=== PATIENT | male | born 1995 | race Caucasian/White ===

== ENCOUNTER 2017-03-26 17:39 | Emergency (ER) | payer OTHER ==
[2017-03-26 17:42] VITALS: BP 130/60; PULSE 94; TEMP 98.1; BMI 22.9
--- NOTE | 2017-03-26 17:53 | PDOC ---
History of Present Illness - General Chief Complaint: RX Refill Stated Complaint: RX REFILLS Time Seen by Provider: 03/26/17 17:45 History Source: Patient Exam Limitations: No Limitations - History of Present Illness Initial Comments: 03/26/17 18:00 came to emergency department requesting psychiatric medication refills. has not taken approximately 5 days as he has been too depressed to attend clinic at [facility]. [facility] psychiatric clinic is aware that he was without his medications but he is required to go to clinic to receive the prescription refills and he has not done so. Denies homicidal or suicidal ideation, denies feelings of wanting to hurt himself or others, just has been on a depressive side of his manic depressive disorder and sleeping most of the time. Recounts 5 different medications and dosages which were verified by [facility] pharmacy on [facility] to have been refilled ; [place] [facility] 450 mg x2 daily, 60 tablets were filled on January 23 Risperdal 4 mg, 30 tablets filled on January 30 Trazodone 50 mg 30 tablets filled on January 23 Cogentin 1 mg 60 tablets filled on January 24 Lamictal 100 mg 30 tablets filled on January 23 Patient is currently asymptomatic, denies any tremulousness, palpitations chest pain dizziness nausea vomiting diarrhea or constipation. Has never had seizure disorder. And reports being clean from any kind of illicit drug use for 8 months in 14 days. Timing/Duration: unsure Severity: mild, moderate Past History - Travel Traveled outside of the country in the last 30 days: No Close contact w/someone who was outside of country & ill: No - Past Medical History Allergies/Adverse Reactions: Allergies Allergy/AdvReac Type Severity Reaction Status Date / Time No Known Allergies Allergy Verified 03/26/17 17:42 Home Medications: Ambulatory Orders Benztropine Mesylate [Cogentin -] 1 mg PO DAILY 03/26/17 Lamotrigine [Lamictal] 100 mg PO ASDIR 03/26/17 [place] Carbonate [Eskalith -] 600 mg PO ASDIR 03/26/17 Trazodone HCl 50 mg PO ASDIR 03/26/17 Anemia: No Asthma: No Cancer: No Cardiac Disorders: Yes (tx for pericaditis in 2010, viral) CVA: No COPD: No CHF: No Dementia: No Diabetes: No GI Disorders: No Disorders: No HTN: No Hypercholesterolemia: No Kidney Stones: No Liver Disease: No Psychiatric Problems: Yes (Depression, Bipolar) Seizures: No Thyroid Disease: No - Surgical History Abdominal Surgery: No Appendectomy: No Cardiac Surgery: Yes (pericarditis age 17) Cholecystectomy: No Lung Surgery: Yes (Bilateral spontaneous pneumothorax age 13) Neurologic Surgery: No Orthopedic Surgery: No - Reproductive History Testicular Surgery: No - Suicide/Smoking/Psychosocial Hx Smoking History: Current every day smoker Have you smoked in the past 12 months: Yes Number of Cigarettes Smoked Daily: 10 Information on smoking cessation initiated: Yes 'Breaking Loose' booklet given: 03/26/17 Hx Alcohol Use: No Drug/Substance Use Hx: No Substance Use Type: None Hx Substance Use Treatment: Yes Review of Systems - Review of Systems Able to Perform ROS?: Yes Is the patient limited Yakut proficient: Yes Constitutional: Yes: Symptoms Reported, See HPI, Loss of Appetite, Malaise HEENTM: Yes: See HPI. No: Symptoms Reported Respiratory: No: Symptoms reported Cardiac (ROS): No: Symptoms Reported Psychiatric: Yes: Depression, Mood Swings *Physical Exam - Vital Signs Last Vital Signs Temp Pulse Resp BP Pulse Ox 98.1 F 94 H 18 130/60 100 03/26/17 17:40 03/26/17 17:40 03/26/17 17:40 03/26/17 17:40 03/26/17 17:40 - Physical Exam General Appearance: Yes: Nourished, Appropriately Dressed. No: Apparent Distress HEENT: positive: SARAH, Normal ENT Inspection, TMs Normal, Pharynx Normal Neck: positive: Supple. negative: Tender Respiratory/Chest: positive: Lungs Clear, Normal Breath Sounds Musculoskeletal: positive: Normal Inspection Extremity: positive: Normal Capillary Refill, Normal Inspection, Normal Range of Motion Neurologic: positive: associate medical director II-XII NML intact, Fully Oriented, Alert, Normal Mood/ Affect, Normal Response, Motor Strength 5/5, EOM Palsy (able to recount all events, appears calm, cooperative with exam and ensuring will follow-up tomorrow with his psychiatric clinic) Medical Decision Making - Medical Decision Making 03/26/17 18:42 Discussed case with Regina Fitzpatrick NP who was on-call for psychiatry today. Reviewed all medications where she has agreed or appropriate dosage and no ill effects would calming even though has not taken for what appears to be one month. We'll give today's dosing now and encouraged patient to follow up tomorrow with psychiatric facility or his clinic. Patient understands no medication prescriptions will be written from here [facility] *DC/Admit/Observation/Transfer Diagnosis at time of Disposition: Medication administered - Discharge Dispostion Disposition: HOME Condition at time of disposition: Stable Admit: No - Patient Instructions Additional Instructions: You have received 900 mg of lithium, 4 mg of Risperdal, 50 mg of trazodone, 1 mg of Cogentin, 100 mg of Lamictal today in the emergency department You need to seek attention at [facility] Monday, March 27 for reevaluation and prescription of monthly medications. Seek attention at psychiatric emergency department if unable to obtain clinic appointment for further evaluation and possible prescription. - Post Discharge Activity Forms/Work/School Notes: Back to Work
[2017-03-26] MEDS ORDERED: risperiDONE 2 MG TABLET PO ONE (18:18)
[2017-03-26] MEDS ORDERED: traZODone HCL 50 MG TABLET (FP) PO ONE (18:19)
[2017-03-26] MEDS ORDERED: BENZTROPINE MESYLATE 1 MG TABLET (FP) PO ONE (18:19)
[2017-03-26] MEDS ORDERED: lamoTRIgine 100 MG TABLET (FP) PO ONE (18:20)
[2017-03-26] MEDS ORDERED: LITHIUM CARBONATE 450 MG TABLET.ER PO ONE (19:00)
[2017-03-27] MEDS ORDERED: LITHIUM CARBONATE 450 MG TABLET.ER PO ONE (18:17)
== END 2017-03-26 18:59 | disposition home or self-care (01) ==
LOC: JERFT 17:39
DX: Z76.0 Encounter for issue of repeat prescription (principal); F31.9 Bipolar disorder, unspecified; F17.210 Nicotine dependence, cigarettes, uncomplicated
CPT/HCPCS: 99281-25

== ENCOUNTER 2019-08-07 16:10 | Emergency (ER) | payer BC, OTHER ==
[2019-08-07 17:45] VITALS: BMI 22.4
[2019-08-07 18:36] LABS: BASO % 0.6 % (0-2.0); EOS % 2.5 % (0-4.5); HEMATOCRIT 37.9 % (35.4-49); LYMPH % 40.1 % (8-40); MCHC 34.3 g/dl (32.0-35.9); MEAN CELL VOLUME 84.7 fl (80-96); MONO % 7.1 % (3.8-10.2); NEUT % 49.7 % (42.8-82.8); PLATELET COUNT 186 K/MM3 (134-434); RBC 4.48 M/mm3 (4.00-5.60); RDW 13.7 % (11.9-15.9); WHITE BLOOD COUNT 4.3 K/mm3 (4.0-10.0)
[2019-08-07 18:49] LABS: INR 1.07 (0.83-1.09); PROTHROMBIN TIME (PATIENT) 12.6 SEC (9.7-13.0)
[2019-08-07 18:52] LABS: ACTIVATED PTT 35.4 SECONDS (25.2-36.5)
[2019-08-07 19:04] LABS: ALBUMIN 3.9 g/dl (3.4-5.0); BILIRUBIN,TOTAL 0.2 mg/dL (0.2-1); BLOOD UREA NITROGEN 20.6 mg/dL (7-18); CALCIUM 9.5 mg/dL (8.5-10.1); CREATININE 0.9 mg/dL (0.55-1.3); POTASSIUM 4.6 mmol/L (3.5-5.1); TOT PROT 7.2 g/dl (6.4-8.2)
--- NOTE | 2019-08-07 19:14 | PDOC ---
History of Present Illness - General Chief Complaint: Suicidal Stated Complaint: Psychiatric Time Seen by Provider: 08/07/19 18:59 History Source: Patient Exam Limitations: No Limitations - History of Present Illness Initial Comments: 23 year old male with PMH bipolar disorder with psychotic features, former heroine user, 1 suicidal attempt in the past BIBA to ED from home for suicidal ideation. Pt reported he has been having a verbal altercations with an ex- girlfriend in [place], she unblocked him so he was able to contact her and she reported to him that her therapist advised her to cut contact with him. He reported he told her "Would your psychiatrist care if I slit my wrists". She called the police who brought him to the ED. He reported "I dont want to live but I dont have the balls to kill myself". Pt reported he took a Suboxone in the last couple of days because he was very stressed and felt he may use. He reported he has been sleeping less lately, which will bring about his auditory hallucinations. He reported he will hear random voices tell him negative things like "you shouldnt talk to her anymore" or "you should hurt yourself". Meds Gabapentin Depakote Seroquel ROS General: denied fever, chills, generalized weakness. HEENT: denied sore throat, rhinorrhea, ear pain. Cardiovascular: denied chest pain, palpitations, syncope, diaphoresis. Respiratory: denied shortness of breath, cough, sputum production, hemoptysis. Gastrointestinal: denied abdominal pain, nausea, vomiting, diarrhea, constipation, blood in stool. Genitourinary: denied dysuria, increased urinary frequency, hematuria, urinary incontinence, flank pain. Back: denied back pain. Musculoskeletal: denied joint pain, muscle pain, joint swelling. Neurological: denied headache, dizziness, numbness, tingling, weakness. Integumentary: denied rash, laceration, abrasion. Hematologic/Lymphatic: denied bruising or bleeding. Psych: admitted to suicidal ideation, auditory hallucinations. denied homicidal ideation, visual hallucinations. PE Constitutional: Well-nourished, Well-developed, appearing stated age. HEENT: head is normocephalic, atraumatic. EOMI. PERRLA. no posterior pharyngeal erythema. no tonsillar swelling or exudates bilaterally. uvula midline. no peritonsillar swelling. no jaw tenderness or misalignment. Neck: supple. Full ROM. Cardiovascular: regular heart rhythm. Normal S1 and S2. no murmurs. no pericardial friction rub. Respiratory: clear to auscultation bilaterally. no crackles, rhonchi or wheezing. no stridor. Gastrointestinal: soft, flat, nontender. normal bowel sounds. no rebound, guarding, or masses. Extremities: peripheral pulses intact and equal. no lower extremity edema noted. Neurological: CN 2-12 grossly intact. moves all four extremities. Psych: awake, alert, oriented x3. follows commands. answers questions appropriately. Past History - Past Medical History Allergies/Adverse Reactions: Allergies Allergy/AdvReac Type Severity Reaction Status Date / Time No Known Allergies Allergy Verified 08/07/19 17:45 Home Medications: Ambulatory Orders Divalproex [Depakote -] 1,000 mg PO DAILY 08/08/19 Gabapentin 800 mg PO HS 08/08/19 Quetiapine Fumarate [Seroquel -] 50 mg PO HS 08/08/19 - Psycho Social/Smoking Cessation Hx Number of Cigarettes Smoked Daily: 10 'Breaking Loose' booklet given: 03/26/17 *Physical Exam - Vital Signs Last Vital Signs Temp Pulse Resp BP Pulse Ox 98.0 F 76 17 110/61 98 08/07/19 16:10 08/07/19 16:10 08/07/19 16:10 08/07/19 16:10 08/07/19 16:10 ED Treatment Course - LABORATORY CBC & Chemistry Diagram: 08/07/19 18:07 08/07/19 18:07 - ADDITIONAL ORDERS Additional order review: Laboratory Results 08/07/19 08/07/19 08/07/19 18:07 18:07 18:07 PT with INR 12.60 INR 1.07 PTT (Actin FS) 35.4 Sodium 140 Potassium 4.6 Chloride 107 Carbon Dioxide 28 Anion Gap 5 L BUN 20.6 H Creatinine 0.9 Est GFR (CKD-EPI)AfAm 138.06 Est GFR (CKD-EPI)NonAf 119.12 Random Glucose 85 Calcium 9.5 Total Bilirubin 0.2 AST 21 ALT 47 Alkaline Phosphatase 62 Total Protein 7.2 Albumin 3.9 Alcohol, Quantitative < 3 08/07/19 18:07 RBC 4.48 MCV 84.7 MCHC 34.3 RDW 13.7 MPV 10.0 Neutrophils % 49.7 Lymphocytes % 40.1 H Monocytes % 7.1 Eosinophils % 2.5 Basophils % 0.6 - RADIOLOGY Radiology Studies Ordered: Category Date Time Status CHEST X-RAY PORTABLE* [RAD] Stat Radiology 08/07/19 17:32 Completed Medical Decision Making - Medical Decision Making 23 year old male with above PMH BIBA to ED for suicidal ideation. Initial Vital Signs Temp Pulse Resp BP Pulse Ox 98.0 F 76 17 110/61 98 08/07/19 16:10 08/07/19 16:10 08/07/19 16:10 08/07/19 16:10 08/07/19 16:10 Afebrile. No tachycardia. No tachypnea. No hypotension. No hypoxia on room air. CXR report: Name: [facility] DEPARTMENT OF RADIOLOGY Phys: Tina Santos RESIDENT : [id number] Age: 23 Sex: M [facility] Acct: [id number] Loc: [address] Exam Date: 08/07/19 Status: [place] [id number] Unit Number: [id number] EXAM#: TYPE/EXAM: RESULT: [id number] RAD/CHEST X-RAY PORTABLE* Chest: Suicidal. Pain. There are no prior studies for comparison. There are clear lungs, normal mediastinum and sharp angles. Is intact. Impression: No acute chest pathology. No comparison studies Reported By: Emiliano Nevarez MD 08/07/19 1811 EKG performed at 1831: rate 76, regular rhythm, normal axis, normal intervals, no acute ST changes. 1:1 placed. Constant observation ordered. No psych fermentation scientist for [facility]. Will call [facility] to transfer. 08/07/19 22:21 Laboratory Last Values WBC 4.3 K/mm3 (4.0-10.0) 08/07/19 18:07 RBC 4.48 M/mm3 (4.00-5.60) 08/07/19 18:07 Hgb 13.0 GM/dL (11.7-16.9) 08/07/19 18:07 Hct 37.9 % (35.4-49) 08/07/19 18:07 MCV 84.7 fl (80-96) 08/07/19 18:07 MCH 29.0 pg (25.7-33.7) 08/07/19 18:07 MCHC 34.3 g/dl (32.0-35.9) 08/07/19 18:07 RDW 13.7 % (11.9-15.9) 08/07/19 18:07 Plt Count 186 K/MM3 (134-434) D 08/07/19 18:07 MPV 10.0 fl (7.5-11.1) 08/07/19 18:07 Absolute Neuts (auto) 2.1 K/mm3 (1.5-8.0) 08/07/19 18:07 Neutrophils % 49.7 % (42.8-82.8) 08/07/19 18:07 Lymphocytes % 40.1 % (8-40) H 08/07/19 18:07 Monocytes % 7.1 % (3.8-10.2) 08/07/19 18:07 Eosinophils % 2.5 % (0-4.5) 08/07/19 18:07 Basophils % 0.6 % (0-2.0) 08/07/19 18:07 Nucleated RBC % 0 % (0-0) 08/07/19 18:07 PT with INR 12.60 SEC (9.7-13.0) 08/07/19 18:07 INR 1.07 (0.83-1.09) 08/07/19 18:07 PTT (Actin FS) 35.4 SECONDS (25.2-36.5) 08/07/19 18:07 Sodium 140 mmol/L (136-145) 08/07/19 18:07 Potassium 4.6 mmol/L (3.5-5.1) 08/07/19 18:07 Chloride 107 mmol/L (98-107) 08/07/19 18:07 Carbon Dioxide 28 mmol/L (21-32) 08/07/19 18:07 Anion Gap 5 MMOL/L (8-16) L 08/07/19 18:07 BUN 20.6 mg/dL (7-18) H 08/07/19 18:07 Creatinine 0.9 mg/dL (0.55-1.3) 08/07/19 18:07 Est GFR (CKD-EPI)AfAm 138.06 08/07/19 18:07 Est GFR (CKD-EPI)NonAf 119.12 08/07/19 18:07 Random Glucose 85 mg/dL (74-106) 08/07/19 18:07 Calcium 9.5 mg/dL (8.5-10.1) 08/07/19 18:07 Total Bilirubin 0.2 mg/dL (0.2-1) 08/07/19 18:07 AST 21 U/L (15-37) 08/07/19 18:07 ALT 47 U/L (13-61) 08/07/19 18:07 Alkaline Phosphatase 62 U/L (45-117) 08/07/19 18:07 Total Protein 7.2 g/dl (6.4-8.2) 08/07/19 18:07 Albumin 3.9 g/dl (3.4-5.0) 08/07/19 18:07 Urine Color Yellow 08/07/19 18:45 Urine Appearance Clear 08/07/19 18:45 Urine pH 7.0 (5.0-8.0) 08/07/19 18:45 Ur Specific [place] 1.019 (1.010-1.035) 08/07/19 18:45 Urine Protein Negative (NEGATIVE) 08/07/19 18:45 Urine Glucose (UA) Negative (NEGATIVE) 08/07/19 18:45 Urine Ketones Negative (NEGATIVE) 08/07/19 18:45 Urine Blood Negative (NEGATIVE) 08/07/19 18:45 Urine Nitrite Negative (NEGATIVE) 08/07/19 18:45 Urine Bilirubin Negative (NEGATIVE) 08/07/19 18:45 Urine Urobilinogen 0.2 mg/dL (0.2-1.0) 08/07/19 18:45 Ur Leukocyte Esterase Negative (NEGATIVE) 08/07/19 18:45 Salicylates < 1.7 mg/dL (2.8-20) L 08/07/19 18:07 Opiates Screen Negative ng/ml (QAJLRU=468) 08/07/19 18:45 Methadone Screen Negative ng/ml (MAUBNV=856) 08/07/19 18:45 Acetaminophen --noresult-- 08/07/19 18:07 Barbiturate Screen Negative ng/ml (BFBEBI=643) 08/07/19 18:45 Phencyclidine Screen Negative ng/ml (CUTOFF=25) 08/07/19 18:45 Ur Amphetamines Screen Negative ng/ml (FGBKIQ=047) 08/07/19 18:45 MDMA (Ecstasy) Screen Negative ng/ml (VCFTMU=027) 08/07/19 18:45 Benzodiazepines Screen Negative ng/ml (ZHBCRZ=582) 08/07/19 18:45 Cocaine Screen Negative ng/ml (RJOYRL=952) 08/07/19 18:45 U Marijuana (THC) Screen Negative ng/ml (CUTOFF=50) 08/07/19 18:45 Alcohol, Quantitative < 3 mg/dL (0.0-5.0) 08/07/19 18:07 Pt signed consent for transfer to tertiary care center for psych evaluation. Required paperwork sent via fax to [phone] to [facility]. Have not spoken with psych or any ED physician at this point. [facility] stated it can be up to 2 hours for response. Pt signed out to Dr. Kwan, EM Resident. Pt is medically cleared for psych evaluation. Discharge - Discharge Information Problems reviewed: Yes Clinical Impression/Diagnosis: Depression with suicidal ideation Condition: Guarded Disposition: TRANSFER ACUTE CARE/OTHER HOSP - Follow up/Referral - Patient Discharge Instructions - Post Discharge Activity Work/Back to School Note: My Personal Safety Plan
[2019-08-07 19:30] LABS: URINE APPEARANCE CLEAR; URINE BILIRUBIN NEGATIVE (NEGATIVE); URINE COLOR YELLOW; URINE GLUCOSE (UA) NEGATIVE (NEGATIVE); URINE KETONE NEGATIVE (NEGATIVE); URINE LEUK ESTERASE NEGATIVE (NEGATIVE); URINE NITRITE NEGATIVE (NEGATIVE); URINE PROTEIN NEGATIVE (NEGATIVE); URINE UROBILINOGEN 0.2 mg/dL (0.2-1.0)
--- NOTE | 2019-08-07 19:57 | PDOC ---
Documentation entered by Shan Jeffers SCRIBE, acting as scribe for Yuri Galo MD. Yuri Galo MD: This documentation has been prepared by the Zeyad victoria Xhesika, SCRIBE, under my direction and personally reviewed by me in its entirety. I confirm that the documentation accurately reflects all work, treatment, procedures, and medical decision making performed by me. Attending Attestation - Resident Resident Name: Tina Santos - ED Attending Attestation I have performed the following: I have examined & evaluated the patient, The case was reviewed & discussed with the resident, I agree w/resident's findings & plan, Exceptions are as noted - HPI HPI: 08/07/19 19:26 The patient is a 23 year old male with a significant PMH of bipolar disorder, past suicidal attempt and heroine abuse who presents to the emergency department BIBA for suicidal ideation. Pt states he does not want to live and is hearing voices intermittently. Allergies: NKDA - Physicial Exam PE: 08/07/19 19:54 Patient is awake and alert, nontoxic-appearing, flat affect, hemodynamically stable Normocephalic and atraumatic PERRLA, EOMI, no nystagmus CTA RRR Abdomen soft, nontender, No focal neuro deficits - Medical Decision Making 08/07/19 19:56 Patient is a 23-year-old male with history of bipolar disorder and polysubstance abuse who presents with suicidal ideations but no definitive plan. Patient will require psychiatric evaluation. There is no psychiatric consult available at this time. Patient will have to be transferred to another facility. Will medically clear.
[2019-08-07 20:29] LABS: COCAINE, UR NEGATIVE ng/ml (CUTOFF=300); METHADONE, UR NEGATIVE ng/ml (CUTOFF=300); OPIATES, URI NEGATIVE ng/ml (CUTOFF=300); PHENCYCLIDINE,URINE NEGATIVE ng/ml (CUTOFF=25); URINE AMPHETAMINES NEGATIVE ng/ml (CUTOFF=500); URINE BARBITURATES NEGATIVE ng/ml (CUTOFF=200); URINE BENZODIAZEPINES NEGATIVE ng/ml (CUTOFF=200)
[2019-08-08] MEDS ORDERED: DIVALPROEX SODIUM 500 MG TABLET E.C. PO ONE (00:25)
[2019-08-08] MEDS ORDERED: GABAPENTIN 400 MG CAPSULE PO ONE (00:25)
[2019-08-08] MEDS ORDERED: QUEtiapine FUMARATE 50 MG TABLET PO ONE (00:25)
[2019-08-08] MEDS ORDERED: GABAPENTIN 100 MG CAPSULE ONE (00:53)
[2019-08-08] MEDS ORDERED: QUEtiapine FUMARATE 25 MG TABLET ONE (00:53)
[2019-08-08] MEDS ORDERED: DIVALPROEX SODIUM 500 MG TABLET E.C. ONE (00:53)
--- NOTE | 2019-08-08 06:19 | PDOC ---
*Physical Exam - Vital Signs Last Vital Signs Temp Pulse Resp BP Pulse Ox 98.0 F 76 17 110/61 98 08/07/19 16:10 08/07/19 16:10 08/07/19 16:10 08/07/19 16:10 08/07/19 16:10 ED Treatment Course - LABORATORY CBC & Chemistry Diagram: 08/07/19 18:07 08/07/19 18:07 - ADDITIONAL ORDERS Additional order review: Laboratory Results 08/07/19 08/07/19 08/07/19 18:45 18:45 18:07 PT with INR INR PTT (Actin FS) Sodium 140 Potassium 4.6 Chloride 107 Carbon Dioxide 28 Anion Gap 5 L BUN 20.6 H Creatinine 0.9 Est GFR (CKD-EPI)AfAm 138.06 Est GFR (CKD-EPI)NonAf 119.12 Random Glucose 85 Calcium 9.5 Total Bilirubin 0.2 AST 21 ALT 47 Alkaline Phosphatase 62 Total Protein 7.2 Albumin 3.9 Urine Color Yellow Urine Appearance Clear Urine pH 7.0 Ur Specific [place] 1.019 Urine Protein Negative Urine Glucose (UA) Negative Urine Ketones Negative Urine Blood Negative Urine Nitrite Negative Urine Bilirubin Negative Urine Urobilinogen 0.2 Ur Leukocyte Esterase Negative Salicylates Opiates Screen Negative Methadone Screen Negative Acetaminophen Barbiturate Screen Negative Phencyclidine Screen Negative Ur Amphetamines Screen Negative MDMA (Ecstasy) Screen Negative Benzodiazepines Screen Negative Cocaine Screen Negative U Marijuana (THC) Screen Negative Alcohol, Quantitative 08/07/19 08/07/19 08/07/19 18:07 18:07 18:07 PT with INR 12.60 INR 1.07 PTT (Actin FS) 35.4 Sodium Potassium Chloride Carbon Dioxide Anion Gap BUN Creatinine Est GFR (CKD-EPI)AfAm Est GFR (CKD-EPI)NonAf Random Glucose Calcium Total Bilirubin AST ALT Alkaline Phosphatase Total Protein Albumin Urine Color Urine Appearance Urine pH Ur Specific [place] Urine Protein Urine Glucose (UA) Urine Ketones Urine Blood Urine Nitrite Urine Bilirubin Urine Urobilinogen Ur Leukocyte Esterase Salicylates < 1.7 L Opiates Screen Methadone Screen Acetaminophen --noresult-- Barbiturate Screen Phencyclidine Screen Ur Amphetamines Screen MDMA (Ecstasy) Screen Benzodiazepines Screen Cocaine Screen U Marijuana (THC) Screen Alcohol, Quantitative < 3 08/07/19 18:07 RBC 4.48 MCV 84.7 MCHC 34.3 RDW 13.7 MPV 10.0 Neutrophils % 49.7 Lymphocytes % 40.1 H Monocytes % 7.1 Eosinophils % 2.5 Basophils % 0.6 - Medications Given in the ED: ED Medications Discontinued Medications Generic Name Dose Route Start Last Admin Trade Name Robq PRN Reason Stop Dose Admin Divalproex Sodium 1,000 mg 08/08/19 00:25 08/08/19 01:05 Depakote - PO 08/08/19 00:26 1,000 mg ONCE ONE Administration Gabapentin 800 mg 08/08/19 00:25 08/08/19 01:05 Neurontin - PO 08/08/19 00:26 800 mg ONCE ONE Administration Quetiapine Fumarate 50 mg 08/08/19 00:25 08/08/19 01:05 Seroquel - PO 08/08/19 00:26 50 mg ONCE ONE Administration Medical Decision Making - Medical Decision Making Patient signed out by Dr. Santos 23 year old male with PMH bipolar disorder with psychotic features, former heroine user, 1 suicidal attempt in the past BIBA to ED from home for suicidal ideation. Medically cleared for psychiatric evaluation No psych coverage at [facility] We are expecting a callback from [place] in the AM 08/08/19 06:18 Discharge - Discharge Information Problems reviewed: Yes Clinical Impression/Diagnosis: Depression with suicidal ideation Disposition: TRANSFER ACUTE CARE/OTHER HOSP - Follow up/Referral - Patient Discharge Instructions - Post Discharge Activity Work/Back to School Note: My Personal Safety Plan
[2019-08-08 06:57] VITALS: BP 105/54; PULSE 65; TEMP 97.5
--- NOTE | 2019-08-08 07:18 | PDOC ---
*Physical Exam - Vital Signs Last Vital Signs Temp Pulse Resp BP Pulse Ox 97.5 F L 65 16 105/54 L 100 08/08/19 06:57 08/08/19 06:57 08/08/19 06:57 08/08/19 06:57 08/08/19 06:57 ED Treatment Course - LABORATORY CBC & Chemistry Diagram: 08/07/19 18:07 08/07/19 18:07 - ADDITIONAL ORDERS Additional order review: Laboratory Results 08/07/19 08/07/19 08/07/19 18:45 18:45 18:07 Urine Color Yellow Urine Appearance Clear Urine pH 7.0 Ur Specific [place] 1.019 Urine Protein Negative Urine Glucose (UA) Negative Urine Ketones Negative Urine Blood Negative Urine Nitrite Negative Urine Bilirubin Negative Urine Urobilinogen 0.2 Ur Leukocyte Esterase Negative Salicylates < 1.7 L Opiates Screen Negative Methadone Screen Negative Acetaminophen --noresult-- Barbiturate Screen Negative Phencyclidine Screen Negative Ur Amphetamines Screen Negative MDMA (Ecstasy) Screen Negative Benzodiazepines Screen Negative Cocaine Screen Negative U Marijuana (THC) Screen Negative 08/07/19 18:07 RBC 4.48 MCV 84.7 MCHC 34.3 RDW 13.7 MPV 10.0 Neutrophils % 49.7 Lymphocytes % 40.1 H Monocytes % 7.1 Eosinophils % 2.5 Basophils % 0.6 - Medications Given in the ED: ED Medications Discontinued Medications Generic Name Dose Route Start Last Admin Trade Name Freq PRN Reason Stop Dose Admin Divalproex Sodium 1,000 mg 08/08/19 00:25 08/08/19 01:05 Depakote - PO 08/08/19 00:26 1,000 mg ONCE ONE Administration Gabapentin 800 mg 08/08/19 00:25 08/08/19 01:05 Neurontin - PO 08/08/19 00:26 800 mg ONCE ONE Administration Quetiapine Fumarate 50 mg 08/08/19 00:25 08/08/19 01:05 Seroquel - PO 08/08/19 00:26 50 mg ONCE ONE Administration Medical Decision Making - Medical Decision Making 08/08/19 07:[address] Kwan: 23M PM BPD w/ psychotic features, former heroine user, 1 suicidal attempt in the past BIBEMS from home for suicidal ideation. Medically cleared for psychiatric evaluation No psych coverage at [facility] - call [facility] regarding XFER status 08/08/19 07:24 d/w [facility] XFER regarding status: case was escalated to psychiatry leadership, transfer center awaiting notification regarding acceptance, will call back. 08/08/19 07:38 accepted to [facility] Discharge - Discharge Information Problems reviewed: Yes Clinical Impression/Diagnosis: Depression with suicidal ideation Condition: Guarded Disposition: TRANSFER ACUTE CARE/OTHER HOSP - Follow up/Referral - Patient Discharge Instructions - Post Discharge Activity Work/Back to School Note: My Personal Safety Plan - Transfer to Acute Care Facility Receiving Facility Name: [facility] (Psych)
--- NOTE | 2019-08-08 07:37 | PDOC ---
*Physical Exam - Vital Signs Last Vital Signs Temp Pulse Resp BP Pulse Ox 97.5 F L 65 16 105/54 L 100 08/08/19 06:57 08/08/19 06:57 08/08/19 06:57 08/08/19 06:57 08/08/19 06:57 - Physical Exam 08/08/19 08:04 awake alert lungs clear bilat heart rrr no mrg calm cooperative. positive SI, depressed affect. speech clear ED Treatment Course - LABORATORY CBC & Chemistry Diagram: 08/07/19 18:07 08/07/19 18:07 - ADDITIONAL ORDERS Additional order review: Laboratory Results 08/07/19 08/07/19 18:45 18:07 Salicylates < 1.7 L Opiates Screen Negative Methadone Screen Negative Acetaminophen --noresult-- Barbiturate Screen Negative Phencyclidine Screen Negative Ur Amphetamines Screen Negative MDMA (Ecstasy) Screen Negative Benzodiazepines Screen Negative Cocaine Screen Negative U Marijuana (THC) Screen Negative 08/07/19 18:07 RBC 4.48 MCV 84.7 MCHC 34.3 RDW 13.7 MPV 10.0 Neutrophils % 49.7 Lymphocytes % 40.1 H Monocytes % 7.1 Eosinophils % 2.5 Basophils % 0.6 - Medications Given in the ED: ED Medications Discontinued Medications Generic Name Dose Route Start Last Admin Trade Name Sb PRN Reason Stop Dose Admin Divalproex Sodium 1,000 mg 08/08/19 00:25 08/08/19 01:05 Depakote - PO 08/08/19 00:26 1,000 mg ONCE ONE Administration Gabapentin 800 mg 08/08/19 00:25 08/08/19 01:05 Neurontin - PO 08/08/19 00:26 800 mg ONCE ONE Administration Quetiapine Fumarate 50 mg 08/08/19 00:25 08/08/19 01:05 Seroquel - PO 08/08/19 00:26 50 mg ONCE ONE Administration Medical Decision Making - Medical Decision Making 08/08/19 07:34 23 yo male h/o polysubstance abuse, h/o bipolar, here with suicidal ideation after break up / argument with his girlfriend who lives in [place]. pt signed out to me at 7 am awaiting transfer acceptance for psych eval as no psych services at [facility] this week. pt info had previously been sent to [facility], however no call back long delay awaiting to speak to physician there. d/w Ed attendin Dr Renee at [facility], they currently have beds. will accept pt to [facility] for psychiatric evaluation. breakfast ordered. at this time pt is medically clear for evaluation . was given quitepine, and depakote last pm. labs normal. cxr negative, EKG unremarkable. Discharge - Discharge Information Problems reviewed: Yes Clinical Impression/Diagnosis: Depression with suicidal ideation Disposition: TRANSFER ACUTE CARE/OTHER HOSP - Follow up/Referral - Patient Discharge Instructions - Post Discharge Activity Work/Back to School Note: My Personal Safety Plan
--- NOTE | 2019-08-08 14:19 | EKG ---
Test Reason : Blood Pressure : / mmHG Vent. Rate : 076 BPM Atrial Rate : 076 BPM P-R Int : 142 ms QRS Dur : 108 ms QT Int : 376 ms P-R-T Axes : 037 055 064 degrees QTc Int : 423 ms NORMAL SINUS RHYTHM WITH SINUS ARRHYTHMIA NORMAL ECG NO PREVIOUS ECGS AVAILABLE Confirmed by LUCAS LARSEN MD ([id number]) on 08/08/2019 2:18:54 PM Referred By: Confirmed By:LCUAS LARSEN MD
== END 2019-08-08 08:58 | disposition short-term general hospital (02) ==
LOC: JER 16:10
DX: R45.851 Suicidal ideations (principal); F31.9 Bipolar disorder, unspecified; F19.10 Other psychoactive substance abuse, uncomplicated
CPT/HCPCS: 36415; 71045-TC-FY; 80053; 80307; 81003; 85025; 85610; 85730; 87086; 93005; 93010; 99285-25

== ENCOUNTER 2019-12-11 09:12 | Emergency (ER) | payer BC ==
[2019-12-11 09:29] VITALS: BP 128/79; TEMP 99.2; BMI 23.0
--- NOTE | 2019-12-11 09:43 | PDOC ---
Documentation entered by Radha Cope SCRIBE, acting as scribe for Mc Silvestre MD. Mc Silvestre MD: This documentation has been prepared by the Anatoliy victoria Adrianna, SCRIBE, under my direction and personally reviewed by me in its entirety. I confirm that the documentation accurately reflects all work, treatment, procedures, and medical decision making performed by me. History of Present Illness - General Stated Complaint: OVERDOSE - History of Present Illness Initial Comments: The patient is a 24 year old male, with a significant PMH of bipolar disorder with psychotic features, heroin user, 1 suicide attempt in the past, pericarditis as a child, and spontaneous bilateral pneumothorax was a child, who presents to the ED BIBEMS for evaluation s/p overdose. As per EMS, patient was found on the floor unresponsive after snorting heroin. Pt required rescue breaths at the time and was given .5 narcan (~45 minutes after initial use) with good response. Narcan was administered at approx 8:40AM, and pt has been awake and alert since. Vitals en route were stable. All patient can recall was that he snorted one bag of heroin around 8am after not having used in 4 months. He does not remember falling to the ground. Patient endorses a slight frontal headache while in the ED, but denies any other acute complaints at this time. Pt not interested in detox. No fever, chills, nausea, vomit, chest pain, SOB, neck pain, UE pain, pelvic pain, or LE pain. Allergies: NKA, NKDA Surgical History: None reported Social History: Heroin abuse (was in rehab for 4 months but relapsed today). Denying detox at this time PCP: Dr. Abel Past History - Medical History Allergies/Adverse Reactions: Allergies Allergy/AdvReac Type Severity Reaction Status Date / Time No Known Allergies Allergy Verified 12/11/19 09:24 Home Medications: Ambulatory Orders Divalproex [Depakote -] 1,000 mg PO DAILY 08/08/19 Gabapentin 800 mg PO HS 08/08/19 Quetiapine Fumarate [Seroquel -] 50 mg PO HS 08/08/19 Anemia: No Asthma: No Cancer: No Cardiac Disorders: Yes (tx for pericaditis in 2010, viral) CVA: No COPD: No CHF: No Dementia: No Diabetes: No GI Disorders: No Disorders: No HTN: No Hypercholesterolemia: No Kidney Stones: No Liver Disease: No Psychiatric Problems: Yes (Depression, Bipolar) Seizures: No Thyroid Disease: No - Surgical History Abdominal Surgery: No Appendectomy: No Cardiac Surgery: Yes (pericarditis age 17) Cholecystectomy: No Lung Surgery: Yes (Bilateral spontaneous pneumothorax age 13) Neurologic Surgery: No Orthopedic Surgery: No - Reproductive History Testicular Surgery: No - Psycho-Social/Smoking History Smoking History: Former smoker Have you smoked in the past 12 months: No Number of Cigarettes Smoked Daily: 10 'Breaking Loose' booklet given: 03/26/17 Review of Systems - Review of Systems Comments:: CONSTITUTIONAL: No reported: Fever, Chills, Diaphoresis, Generalized Weakness, Malaise, Loss of Appetite HEENT: No reported: Rhinorrhea, Nasal Congestion, Throat Pain, Throat Swelling, Difficulty Swallowing, Mouth Swelling, Ear Pain, Eye Pain, Visual Changes CARDIOVASCULAR: No reported: Chest Pain, Syncope, Palpitations, Irregular Heart Rate, Lightheadedness, Peripheral Edema RESPIRATORY: No reported: Cough, Shortness of Breath, SOB with Exertion, Orthopnea, Wheezing, Stridor, Hemoptysis GASTROINTESTINAL: No reported: Abdominal pain, Abdominal Distension, Nausea, Vomiting, Diarrhea, Constipation, Melena, Hematochezia GENITOURINARY: No reported: Dysuria, Frequency, Urgency, Hesitancy, Flank Pain, Genital Pain MUSCULOSKELETAL: No reported: Myalgia, Arthralgia, Joint Swelling, Back pain, Neck Pain SKIN: No reported: Rash, Itching, Pallor HEMATOLOGIC/IMMUNOLOGIC: No reported: Easy Bleeding, Easy Bruising, Lymphadenopathy, Frequent infections ENDOCRINE: No reported: Unexplained Weight Gain, Unexplained Weight Loss, Heat Intolerance, Cold Intolerance NEUROLOGIC: +Frontal headache. No reported: Focal Weakness, Paresthesias, Vertigo, Lightheadedness, Unsteady Gait, Seizure, Mental Status Changes, Incontinence PSYCHIATRIC: No reported: Anxiety, Depression All other systems reviewed and are negative except noted in HPI *Physical Exam - Physical Exam GENERAL: The patient is awake, alert, and fully oriented, Nontoxic - in no acute distress. HEAD: Normocephalic, atraumatic. EYES: extraocular movements intact, sclera anicteric, conjunctiva clear. ENT: Normal voice, Moist mucous membranes. NECK: Normal range of motion, supple LUNGS: Breath sounds equal, clear to auscultation bilaterally. No wheezes, no rhonchi, no rales. HEART: Regular rate and rhythm, without murmur, rub or gallop. ABDOMEN: Soft, nontender, No guarding, no rebound.No CVA tenderness EXTREMITIES: Normal range of motion, no edema. No cyanosis. No erythema, or tenderness. NEUROLOGICAL: No facial asymmetry, Normal speech, PSYCH: Normal mood, normal affect. SKIN: Warm, Dry, normal turgor. Heart Score/ECG Review - ST and T Non Specific ST-T Wave changes: Yes - ECG Impressions Normal ECG: No Tachycardia: Sinus Medical Decision Making - Medical Decision Making 12/11/19 09:48 24 M with accidental overdose on heroin after not using for several months. Pt with mild headache in ED, no signs of traumatic injury on exam. Vitals stable, pt awake and alert after narcan. - Continue to monitor in ED - CT head 12/11/19 11:05 Pt observed in ED for 2 hours, continues to have normal mental and respiratory status, not requiring any additional doses of narcan. CT head unremarkable Pt reassessed - states he feels well. Denies SI/HI/AVH. Pt is well appearing, with normal vitals. Clinically stable for DC at this time. I discussed the physical exam findings, ancillary test results and final diagnoses with the patient. I answered all of the patient's questions. The patient was satisfied with the care received and felt comfortable with the discharge plan and treatment plan. The patient agrees to follow up with the primary care physician within 24-72 hours. Please note this patient was evaluated during the COVID-19 crisis with the presidential [place] Act Declaration and the [place] governma executive order number 202. He/she was evaluated and clinical decisions were made relative to healthcare system resources as well as clinical picture during a pandemic crisis situation. Discharge - Discharge Information Problems reviewed: Yes Clinical Impression/Diagnosis: Accidental heroin overdose Disposition: HOME - Follow up/Referral Referrals: Yon Abel [Primary Care Provider] - - Patient Discharge Instructions Patient Printed Discharge Instructions: DI for Drug Overdose in Adults Additional Instructions: Please follow up with your sponsor and your primary care doctor immediately. Return to the ER if you think you need detox. - Post Discharge Activity Vital Signs - Vital Signs Pulse Rate: 88 Respiratory Rate: 18
[2019-12-11] MEDS ORDERED: SODIUM CHLORIDE 1,000 ML IV STA (09:49)
[2019-12-11 11:55] VITALS: PULSE 88
--- NOTE | 2019-12-11 13:42 | EKG ---
Test Reason : Blood Pressure : / mmHG Vent. Rate : 110 BPM Atrial Rate : 110 BPM P-R Int : 144 ms QRS Dur : 112 ms QT Int : 338 ms P-R-T Axes : 053 059 -05 degrees QTc Int : 457 ms POOR DATA QUALITY, INTERPRETATION MAY BE ADVERSELY AFFECTED SINUS TACHYCARDIA NONSPECIFIC T WAVE ABNORMALITY ABNORMAL ECG Confirmed by MD Joy Edward ([id number]) on 12/11/2019 1:42:16 PM Referred By: Confirmed By:Tesfaye Joy MD
== END 2019-12-11 11:30 | disposition home or self-care (01) ==
LOC: JER 09:12
PROC: 3E0337Z Introduction of Electrolytic and Water Balance Substance into Peripheral Vein, Percutaneous Approach (ICD-10-PCS; principal; 2019-12-11)
DX: T40.1X1A Poisoning by heroin, accidental (unintentional), initial encounter (principal)
CPT/HCPCS: 70450-TC; 93005; 93010; 99285-25

== ENCOUNTER 2020-02-16 02:46 | Emergency (ER) | payer BC ==
[2020-02-16 03:06] VITALS: BP 128/69; PULSE 88; TEMP 98.6; BMI 24.3
--- NOTE | 2020-02-16 03:59 | PDOC ---
History of Present Illness - General Chief Complaint: Chest Pain Stated Complaint: CHEST PAIN Time Seen by Provider: 02/16/20 03:16 History Source: Patient Exam Limitations: No Limitations - History of Present Illness Initial Comments: 24M with PMH of bipolar disorder with psychotic features and previous IV heroin abuse on suboxone presents to the ED with left sided sharp chest pain that started suddenly around midnight, that radiates to the left shoulder. He states that the pain is worse with movement and changing positions in bed. Denies SOB, n/v/d/c, abdominal pain, fevers/chills, neuro symptoms. PMH: as in HPI SH: none Meds: Suboxone, depakote, seroquel, gabapentin Allergies: NKDA Tob/Etoh/Rec drugs: negx3 FHx: no hx/o of sudden cardiac in anyone <50yo ROS GENERAL/CONSTITUTIONAL: No fever or chills. No weakness. HEENT: No change in vision. No ear pain or discharge. No sore throat. CARDIOVASCULAR: +chest pain, no shortness of breath RESPIRATORY: No cough, wheezing, or hemoptysis. GASTROINTESTINAL: No nausea, vomiting, diarrhea or constipation. GENITOURINARY: No dysuria, frequency, or change in urination. MUSCULOSKELETAL: No joint or muscle swelling or pain. No neck or back pain. SKIN: No rash NEUROLOGIC: No headache, vertigo, loss of consciousness, or change in strength/sensation. ENDOCRINE: No increased thirst. No abnormal weight change HEMATOLOGIC/LYMPHATIC: No anemia, easy bleeding, or history of blood clots. ALLERGIC/IMMUNOLOGIC: No hives or skin allergy. PE GENERAL: Awake, alert, and fully oriented, in no acute distress HEAD: No signs of trauma, normocephalic, atraumatic EYES: PERRLA, EOMI, sclera anicteric, conjunctiva clear ENT: Auricles normal inspection, hearing grossly normal, nares patent, oropharynx clear without exudates. Moist mucosa NECK: Normal ROM, supple, no LAD, JVD, or masses HEART: Regular rate and rhythm, normal S1 and S2, no murmurs, rubs or gallops, peripheral pulses normal and equal bilaterally. +reproducible chest wall and left shoulder tenderness LUNGS: No distress, speaks full sentences, clear to auscultation bilaterally ABDOMEN: Soft, nontender, normoactive bowel sounds. No guarding, no rebound. No masses EXTREMITIES: Normal inspection, Normal range of motion, no edema. No clubbing or cyanosis. NEUROLOGICAL: CNII-XII grossly intact. Normal speech, normal gait, no focal sensorimotor deficits SKIN: Warm, Dry, normal turgor, no rashes or lesions noted Assessment and Plan 1. MSK / costochondritis Trevor Escalante, PGY1 Emergency Medicine Past History - Medical History Allergies/Adverse Reactions: Allergies Allergy/AdvReac Type Severity Reaction Status Date / Time No Known Allergies Allergy Verified 12/11/19 09:24 Home Medications: Ambulatory Orders Divalproex [Depakote -] 1,000 mg PO DAILY 08/08/19 Gabapentin 800 mg PO HS 08/08/19 Quetiapine Fumarate [Seroquel -] 50 mg PO HS 08/08/19 Anemia: No Asthma: No Cancer: No Cardiac Disorders: Yes (tx for pericaditis in 2010, viral) CVA: No COPD: No CHF: No Dementia: No Diabetes: No GI Disorders: No Disorders: No HTN: No Hypercholesterolemia: No Kidney Stones: No Liver Disease: No Psychiatric Problems: Yes (Depression, Bipolar) Seizures: No Thyroid Disease: No - Surgical History Abdominal Surgery: No Appendectomy: No Cardiac Surgery: Yes (pericarditis age 17) Cholecystectomy: No Lung Surgery: Yes (Bilateral spontaneous pneumothorax age 13) Neurologic Surgery: No Orthopedic Surgery: No - Reproductive History Testicular Surgery: No - Psycho-Social/Smoking History Smoking History: Never smoked Have you smoked in the past 12 months: No Number of Cigarettes Smoked Daily: 10 'Breaking Loose' booklet given: 03/26/17 - Substance Abuse Hx (Audit-C & DAST Scrn) How often the patient has a drink containing alcohol: Never Score: In Men: 4 or > Positive; In Women: 3 or > Positive: 0 Screen Result (Pos requires Nsg. Audit-10AR): Negative In the last yr the pt used illegal drug/Rx for NonMed reason: No Score: Yes response is considered Positive: 0 Screen Result (Positive result requires Nsg. DAST-10): Negative *Physical Exam - Vital Signs Last Vital Signs Temp Pulse Resp BP Pulse Ox 98.6 F 88 17 128/69 99 02/16/20 03:03 02/16/20 03:03 02/16/20 03:03 02/16/20 03:03 02/16/20 03:03 Medical Decision Making - Medical Decision Making 24M with PMH of bipolar disorder and previous IV heroin abuse on suboxone presents to the ED with left sided sharp chest pain, started suddenly around midnight, radiates to the left shoulder. Pain is worse with movement/changing positions in bed. PE: reproducible chest wall and left shoulder tenderness EKG: normal sinus rhythm, 71 bpm, no ST-T changes. DDx: 1. MSK / costochondritis - tenderness reproducible 2. very low suspicion of ACS, no risk factors, CP does not seem to be cardiac in nature 3. PE - PERC negative Given 650mg tylenol Pt stable for d/c. Advised to use tylenol and motrin at home, and follow up with PMD if no improvement. Discharge - Discharge Information Problems reviewed: Yes Clinical Impression/Diagnosis: Costochondral chest pain Chest pain Qualifiers: Chest pain type: unspecified Qualified Code(s): R07.9 - Chest pain, unspecified Condition: Stable Disposition: HOME - Admission No - Follow up/Referral Referrals: Yon Abel [Primary Care Provider] - - Patient Discharge Instructions Patient Printed Discharge Instructions: DI for Costochondritis Additional Instructions: You were seen in the ED for complaints of chest pain. In the ED you were evaluated with EKG. Your results were normal There does not appear to be an acute need for immediate hospitalization. You are advised to follow up with your Primary Care Physician within 1 week. Return to the ED immediately if you experience chest pain with difficulty breathing, nausea, vomiting, or passing out. - Post Discharge Activity
[2020-02-16] MEDS ORDERED: ACETAMINOPHEN 500 MG TABLET (FP) PO ONE (04:02)
--- NOTE | 2020-02-16 04:03 | PDOC ---
Attending Attestation - Resident Resident Name: Trevor Escalante - ED Attending Attestation I have performed the following: I have examined & evaluated the patient, The case was reviewed & discussed with the resident, I agree w/resident's findings & plan, Exceptions are as noted - HPI HPI: 02/16/20 03:59 24 yo M p/w L sided sharp chest pain radiating to back x4 hours. States worse with trunkal movement. Did not take anything for pain prior to arrival. Denies n/v. Denies SOB. Denies cough. No FH sudden cardiac . Denies tob, etoh or illicit drug use. No other complaints. - Physicial Exam PE: 02/16/20 04:01 General:well appearing Chest: CTAB, good air entry, NAD, +L anterior chest wall tenderness reproduces complaints CVS: + s1 s2, RRR - Medical Decision Making 02/16/20 04:01 24 yo M with atypical chest pain, reproducibe on exam, likely msk pain. Doubt ACS and EKG without ischemic changes. Possible pericarditis although no recent illness. Also doubt PE and pt PERC negative. Plan: -pain control as needed -d/c with return precautions, recommend PMD f/u and supportive care a mansi This clinical encounter is taking place during a federal and state health care emergency attributable to the novel [place] Virus pandemic. The [employer] of the Department of Health and Human Services has declared, pursuant to the Public Health Service Act 319F-3 (42 U.S.C. 247d-6d), that a covered persons activities related to medical countermeasures against COVID-19 will be immune from liability under Federal and State law. Discharge - Discharge Information Problems reviewed: Yes Clinical Impression/Diagnosis: Chest pain Qualifiers: Chest pain type: unspecified Qualified Code(s): R07.9 - Chest pain, unspecified Condition: Good - Follow up/Referral Referrals: Yon Abel [Primary Care Provider] - - Patient Discharge Instructions - Post Discharge Activity
[2020-02-16] MEDS ORDERED: ACETAMINOPHEN 325 MG TABLET (FP) ONE (04:05)
--- NOTE | 2020-02-16 11:54 | EKG ---
Test Reason : Blood Pressure : / mmHG Vent. Rate : 071 BPM Atrial Rate : 071 BPM P-R Int : 158 ms QRS Dur : 114 ms QT Int : 398 ms P-R-T Axes : 037 064 056 degrees QTc Int : 432 ms NORMAL SINUS RHYTHM EARLY REPOLARIZATION WHEN COMPARED WITH ECG OF 11-DEC-2019 09:23, VENT. RATE HAS DECREASED BY 39 BPM NON-SPECIFIC CHANGE IN ST SEGMENT IN INFERIOR LEADS NONSPECIFIC T WAVE ABNORMALITY NO LONGER EVIDENT IN INFERIOR LEADS NONSPECIFIC T WAVE ABNORMALITY NO LONGER EVIDENT IN ANTEROLATERAL LEADS Confirmed by TIM SHRESTHA MD ([id number]) on 02/16/2020 11:54:38 AM Referred By: Confirmed By:TIM SHRESTHA MD
== END 2020-02-16 05:12 | disposition home or self-care (01) ==
LOC: JER 02:46
DX: R07.9 Chest pain, unspecified (principal)
CPT/HCPCS: 93005; 93010; 99284-25